=== PATIENT | male | born 2005 | race American Indian/Alaskan Native ===

== ENCOUNTER → 2025-01-11 | Outpatient (CLI) | payer BC, OTHER, SELFPAY ==
--- NOTE | 2025-01-11 16:44 | XR_ITS ---
Examination: Bilateral hands, 6 views. Technique: AP, Oblique, Lateral each hand total 6 views Date and time of exam: January 11, 2025, 1719 hours INDICATIONS: Bilateral hand pain one year. FINDINGS: Adequate bone density. No fracture or dislocation involving either hand. No erosive or other significant arthritic change involving either hand. No avascular necrosis. No cortical bone destruction IMPRESSION: No erosive or other significant arthritic change involving either hand
--- NOTE | 2025-01-11 16:44 | XR_ITS ---
Examination: Bilateral wrists 6 views TECHNIQUE: AP oblique and lateral each wrist total 6 views Date and time: January 11, 2025 1723 hours INDICATIONS: Bilateral wrist pain one year. FINDINGS: No fracture or dislocation involving either wrist No avascular necrosis. No cortical bone destruction No erosive or the significant arthritic change involving either wrist IMPRESSION: No erosive or other significant arthritic change involving either wrist
== END | disposition home or self-care (01) ==
PROVIDERS: PCP Nurse Practitioner Family; Referring Provider Nurse Practitioner Family; Visit Provider Nurse Practitioner Family
DX: M25.531 Pain in right wrist (principal); M25.532 Pain in left wrist; M65.312 Trigger thumb, left thumb; M65.341 Trigger finger, right ring finger; R25.2 Cramp and spasm; Z82.61 Family history of arthritis
CPT/HCPCS: 73110; 73130